=== PATIENT | female | born 1960 | race Caucasian/White ===

== ENCOUNTER 2019-03-11 15:59 | Emergency (ER) | payer OTHER ==
[~2019-03-11] VITALS: Ht 162.6 cm; Wt 107.7 kg
[2019-03-11 16:13] VITALS: BP 170/99
[2019-03-11 16:49] LABS: BASOPHILS # (AUTO) 0.1 X10'3 (0-0.2); BASOPHILS % (AUTO) 1.1 % (0-1); EOSINOPHILS # (AUTO) 0.4 X10'3 (0-0.9); EOSINOPHILS % (AUTO) 4.5 % (0-6); HEMATOCRIT 37.9 % (35.0-45.0); HEMOGLOBIN 13.1 g/dl (12.0-16.0); LYMPHOCYTES % (AUTO) 22.3 % (21-51); MEAN CORPUSCULAR HEMOGLOBIN 30.6 PG (27.0-31.0); MEAN CORPUSCULAR HGB CONC 34.5 g/dL (33.0-36.5); MEAN CORPUSCULAR VOLUME 88.6 FL (78-98); MEAN PLATELET VOLUME 7.9 FL (7.4-10.4); MONOCYTES # (AUTO) 0.6 X10'3 (0-0.9); MONOCYTES % (AUTO) 6.4 % (2-12); NEUTROPHILS # (AUTO) 5.9 X10'3 (1.8-7.7); NEUTROPHILS % (AUTO) 65.7 % (42-75); PLATELET COUNT 320 X10'3 (140-440); RED BLOOD COUNT 4.28 X10'6 (4.20-5.60); RED CELL DISTRIBUTION WIDTH 13.4 % (11.5-14.5)
[2019-03-11 17:02] LABS: ALANINE AMINOTRANSFERASE 45 U/L (12-78); ALBUMIN 4.1 G/DL (3.4-5.0); ALBUMIN/GLOBULIN RATIO 1.1 (1.1-1.5); ALKALINE PHOSPHATASE 104 IU/L (46-116); ANION GAP 10 (8-16); ASPARTATE AMINO TRANSFERASE 35 U/L (10-37); BILIRUBIN,TOTAL 0.4 MG/DL (0.1-1.0); BLOOD UREA NITROGEN 11 MG/DL (7-18); BUN/CREATININE RATIO 13.1 (6.6-38.0); CALCIUM 9.5 MG/DL (8.5-10.1); CHLORIDE 107 MMOL/L (99-107); CREATININE 0.84 MG/DL (0.40-0.90); GLUCOSE 100 MG/DL (70-104); POTASSIUM 3.7 MMOL/L (3.5-5.1); SODIUM 142 MMOL/L (135-145); TOTAL CARBON DIOXIDE 25.5 MMOL/L (24-32); TOTAL PROTEIN 7.8 G/DL (6.4-8.2); eGFR 69 ML/MIN
[2019-03-11] MEDS ORDERED: predniSONE 20 mg tablet PO ONE (17:10)
[2019-03-11] MEDS ORDERED: azithromycin 250mg tablet PO ONE (17:10)
[2019-03-11] MEDS ORDERED: ipratropium/albuterol 3ml nebule NEB ONE (17:10)
[2019-03-11] MEDS ORDERED: albuterol 2.5 MG/3 ML nebule NEB ONE (17:10)
[2019-03-11] MEDS ORDERED: AZIT250T PO (17:34)
[2019-03-11] MEDS ORDERED: PRED20TA PO (17:34)
== END 2019-03-11 18:16 | disposition home or self-care (01) ==
LOC: ER 15:59
DX: J44.1 Chronic obstructive pulmonary disease with (acute) exacerbation (principal); Z60.2 Problems related to living alone; Z79.899 Other long term (current) drug therapy
CPT/HCPCS: 36415; 71045; 80053; 83880; 85025; 93005; 94640; 99284; J7512; 94760

== ENCOUNTER 2023-06-27 06:09 | Inpatient (IN) | payer OTHER ==
[2023-06-24 15:55] LABS: BILIRUBIN,URINE NEGATIVE (Neg); CLARITY,URINE CLOUDY (Clear); COLOR,URINE YELLOW (Yellow); GLUCOSE, URINE NEGATIVE (Neg); KETONES,URINE NEGATIVE (Neg); LEUKOCYTE ESTERASE ,URINE NEGATIVE (Neg); NITRITES, URINE POSITIVE (Neg); OCCULT BLOOD,URINE NEGATIVE (Neg); PROTEIN,URINE NEGATIVE (Neg); UROBILINOGEN,URINE 0.2 E.U/dL (0.2-1.0)
[2023-06-24 15:55] LABS: BASOPHILS # (AUTO) 0.1 X10'3 (0-0.2); BASOPHILS % (AUTO) 0.9 % (0-1); EOSINOPHILS # (AUTO) 0.1 X10'3 (0-0.9); EOSINOPHILS % (AUTO) 2.4 % (0-6); LYMPHOCYTES # (AUTO) 1.5 X10'3 (1.1-4.8); LYMPHOCYTES % (AUTO) 24.9 % (21-51); MEAN CORPUSCULAR HEMOGLOBIN 31.3 PG (27.0-31.0); MEAN CORPUSCULAR HGB CONC 34.3 g/dL (33.0-36.5); MEAN CORPUSCULAR VOLUME 91.2 FL (78-98); MEAN PLATELET VOLUME 6.9 FL (7.4-10.4); MONOCYTES # (AUTO) 0.6 X10'3 (0-0.9); NEUTROPHILS # (AUTO) 3.9 X10'3 (1.8-7.7); NEUTROPHILS % (AUTO) 62.8 % (42-75); PRE OP HEMATOCRIT 35.9 % (35.0-45.0); PRE OP HEMOGLOBIN 12.3 g/dL (12.0-16.0); PRE OP PLATELET COUNT 391 X10'3 (140-440); PRE OP WHITE BLOOD COUNT 6.2 10'3 (4.8-10.8); RED BLOOD COUNT 3.94 X10'6 (4.20-5.60); RED CELL DISTRIBUTION WIDTH 13.3 % (11.5-14.5)
[2023-06-24 16:04] LABS: UA COLLECTION TYPE CLN CATCH MIDSTREAM
[2023-06-24 16:05] LABS: SQUAMOUS EPITHELIAL CELL,UR MODERATE /LPF (FEW)
[2023-06-24 16:06] LABS: BACTERIA,URINE 4+ /HPF (Neg); RBC,URINE 0-2 /HPF (0-2)
[2023-06-24 16:10] LABS: ALBUMIN 3.7 G/DL (3.4-5.0); ALBUMIN/GLOBULIN RATIO 0.9 (1.1-1.5); ALKALINE PHOSPHATASE 107 IU/L (46-116); BLOOD UREA NITROGEN 11 MG/DL (7-18); BUN/CREATININE RATIO 14.3 (10.0-20.0); CALCIUM 9.2 MG/DL (8.5-10.1); CHLORIDE 106 MMOL/L (99-107); CREATININE 0.77 MG/DL (0.40-0.90); PRE OP ALT 23 U/L (30-65); PRE OP ANION GAP 9 (8-16); PRE OP AST 24 U/L (10-37); PRE OP BILIRUB, TOTAL 0.4 MG/DL (0.0-1.0); PRE OP GLUCOSE 97 MG/DL (70-104); PRE OP POTASSIUM 3.9 MMOL/L (3.4-5.1); PRE OP SODIUM 143 MMOL/L (135-145); TOTAL CARBON DIOXIDE 27.8 MMOL/L (24-32); eGFR 75 ML/MIN
[2023-06-27] VITALS (31 sets, daily range): BP systolic 105–142; BP diastolic 49–94; PULSE 68–114; RESP 14–20; TEMP 97.5–98.8; O2SAT 94–99
[~2023-06-27] VITALS: Ht 162.6 cm; Wt 108.3 kg
[2023-06-27] MEDS: cefazolin 2gm/D5W 100mL 100 ML IV ONE (05:30)
[~2023-06-27 06:09] MED LIST: AZAT50TA18 PO; BUDE10.26 PO; [UNRECOGNIZED DRUG - CODE] PO
[2023-06-27] MEDS ORDERED: bacitracin 15gm ointment TP ONE (06:43)
[2023-06-27] MEDS ORDERED: BUPIVAcaine/PF 2.5mg/ml (0.25%) 10ml vial ONE (06:43)
[2023-06-27] MEDS: famotidine 20mg tablet PO ONE (07:10)
[2023-06-27] MEDS: ringers solution, lacted 1,000 ML IV SCH ×2 (07:10→08:40)
[2023-06-27] MEDS: albuterol 2.5 MG/3 ML nebule NEB ONE (07:22)
[2023-06-27] MEDS ORDERED: morphine 4 MG/ML inj SYRINge IV PRN (08:40)
[2023-06-27] MEDS ORDERED: labetalol 20mg/4ml (5mg/ml) syringe IV PRN (08:40)
[2023-06-27] MEDS ORDERED: proCHLORperazine 10 MG/2 ml inj IV PRN (08:40)
[2023-06-27] MEDS ORDERED: meperidine/PF 25mg/ml syringe IV PRN ×3 (08:40)
[2023-06-27] MEDS ORDERED: morphine 2 MG/ML inj. syringe IV PRN (08:40)
[2023-06-27] MEDS ORDERED: ondansetron/PF 4mg/2ml inj IV PRN (08:40)
[2023-06-27] MEDS ORDERED: enalaprilat dihydrate 2.5mg/2ml vial IV PRN (08:40)
[2023-06-27] MEDS ORDERED: MIDAZolam 1 MG/ML 5ML VIAL ONE (09:17)
[2023-06-27] MEDS ORDERED: fentaNYL/PF 50MCG/1 ML 2ML syringe ONE (09:17)
[2023-06-27] MEDS ORDERED: ROPIVAcaine 0.5% (5mg/ml) 30ml vial ONE (09:56)
[2023-06-27] MEDS ORDERED: BUPIVAcaine/PF 7.5mg/ml (0.75%) 10ml vial ONE (09:56)
[2023-06-27] MEDS ORDERED: dexamethasone sod phosphate 4mg/ml inj. ONE (09:57)
[2023-06-27] MEDS: bacitracin 15gm ointment TP ONE (10:36)
[2023-06-27] MEDS ORDERED: acetaminophen 1,000mg/100ml IV 100 ML IV ONE (11:21)
[2023-06-27] MEDS ORDERED: propofol inj 20 ML IV ONE (11:23)
[2023-06-27] MEDS: sodium chloride 0.45% 1,000 ML IV SCH (14:17)
[2023-06-27] MEDS: cefazolin 2gm/D5W 100mL 100 ML IV SCH (17:17)
[2023-06-27] MEDS: budesonide 0.5mg/2ml UD nebule IH SCH (20:00)
[2023-06-27] MEDS: PYRIDOSTIGMINE BROMIDE PO SCH (20:00)
[2023-06-27] MEDS: albuterol 2.5 MG/3 ML nebule NEB SCH (21:26)
[2023-06-27] MEDS ORDERED: CefTRIAXone/D5W-Rocephin 1gm 50 ML IV SCH (23:20)
[2023-06-28] VITALS (13 sets, daily range): BP systolic 123–141; BP diastolic 56–71; PULSE 73–93; RESP 15–20; TEMP 97.7–98.7; O2SAT 93–99
[2023-06-28] MEDS: CefTRIAXone/D5W-Rocephin 1gm 50 ML IV SCH (00:07)
[2023-06-28] MEDS: PYRIDOSTIGMINE BROMIDE 180 MG PO SCH (10:31)
[2023-06-28] MEDS: acetaminophen w/codeine (30MG) #3 tablet PO PRN (20:28)
[2023-06-28] MEDS: HYDROcodone/acetaminophen 10/325mg tab PO PRN (22:57)
[2023-06-29] VITALS (14 sets, daily range): BP systolic 110–115; BP diastolic 56–70; PULSE 61–86; RESP 14–18; TEMP 97.2–98; O2SAT 95–98
[2023-06-29] MEDS: acetaminophen w/codeine (30MG) #3 tablet PO PRN (00:25)
[2023-06-29] MEDS: HYDROmorphone inj. 0.5 MG/0.5 ML DISP.SYRIN IV ONE (02:06)
[2023-06-29] MEDS: HYDROcodone/acetaminophen 10/325mg tab PO PRN (03:16)
[2023-06-29] MEDS: ondansetron/PF 4mg/2ml inj IV PRN (15:31)
[2023-06-29] MEDS: predniSONE 20 mg tablet PO ONE (17:20)
[2023-06-29] MEDS ORDERED: HYDROmorphone inj. 0.5 MG/0.5 ML DISP.SYRIN IV PRN (20:50)
[2023-06-29] MEDS: ketorolac trometh. 30mg/ml inj. IV ONE (21:09)
[2023-06-30] VITALS (11 sets, daily range): BP systolic 113–145; BP diastolic 61–72; PULSE 59–85; RESP 16–20; TEMP 96.2–98.2; O2SAT 95–98
[2023-06-30] MEDS: acetaminophen 325mg tablet PO PRN (05:01)
[2023-06-30] MEDS: prednisone 10mg tablet PO SCH (08:56)
[2023-06-30 09:42] LABS: BASOPHILS % (AUTO) 0.2 % (0-1); EOSINOPHILS % (AUTO) 0.1 % (0-6); HEMATOCRIT 37.9 % (35.0-45.0); HEMOGLOBIN 12.6 g/dl (12.0-16.0); LYMPHOCYTES # (AUTO) 1.2 X10'3 (1.1-4.8); LYMPHOCYTES % (AUTO) 9.8 % (21-51); MEAN CORPUSCULAR HEMOGLOBIN 30.6 PG (27.0-31.0); MEAN CORPUSCULAR HGB CONC 33.2 g/dL (33.0-36.5); MEAN CORPUSCULAR VOLUME 92.4 FL (78-98); MEAN PLATELET VOLUME 7.2 FL (7.4-10.4); MONOCYTES # (AUTO) 0.5 X10'3 (0-0.9); MONOCYTES % (AUTO) 3.7 % (2-12); NEUTROPHILS # (AUTO) 10.8 X10'3 (1.8-7.7); NEUTROPHILS % (AUTO) 86.2 % (42-75); PLATELET COUNT 433 X10'3 (140-440); RED CELL DISTRIBUTION WIDTH 13.4 % (11.5-14.5); WHITE BLOOD COUNT 12.5 X10'3 (4.5-11.0)
[2023-06-30 10:33] LABS: ALANINE AMINOTRANSFERASE 18 U/L (12-78); ALBUMIN 3.3 G/DL (3.4-5.0); ALBUMIN/GLOBULIN RATIO 0.7 (1.1-1.5); ALKALINE PHOSPHATASE 101 IU/L (46-116); ANION GAP 12 (8-16); ASPARTATE AMINO TRANSFERASE 18 U/L (10-37); BILIRUBIN,TOTAL 0.5 MG/DL (0.1-1.0); BLOOD UREA NITROGEN 13 MG/DL (7-18); BUN/CREATININE RATIO 19.1 (10.0-20.0); CALCIUM 9.9 MG/DL (8.5-10.1); CHLORIDE 102 MMOL/L (99-107); CREATININE 0.68 MG/DL (0.40-0.90); GLUCOSE 129 MG/DL (70-104); POTASSIUM 4.3 MMOL/L (3.5-5.1); SODIUM 138 MMOL/L (135-145); TOTAL CARBON DIOXIDE 23.9 MMOL/L (24-32); TOTAL PROTEIN 8.1 G/DL (6.4-8.2); eCRCL 72 ML/MIN; eGFR 87 ML/MIN
[2023-07-01] VITALS (14 sets, daily range): BP systolic 130–152; BP diastolic 64–76; PULSE 66–90; RESP 14–20; TEMP 97.3–98.2; O2SAT 93–98
[2023-07-02] VITALS (9 sets, daily range): BP systolic 97–125; BP diastolic 63–68; PULSE 67–88; RESP 16–19; TEMP 97.3–97.7; O2SAT 92–98
[2023-07-02] MEDS ORDERED: PRED10TA PO (17:41)
[2023-07-02] MEDS ORDERED: ASPI-1 PO (17:58)
[2023-07-02] MEDS ORDERED: ASPI-1265 PO (18:07)
[2023-07-02] MEDS ORDERED: ACET-1 PO (18:09)
== END 2023-07-02 18:55 | disposition home or self-care (01) | DRG 493 ==
LOC: PAS 06:09 → ORTHO 4S 13:55 → OBSVTOIN 06-29 13:56 → ORTHO 4S 07-01 21:13
PROVIDERS: ADMIT Podiatrist Foot & Ankle Surgery; ATTEND Podiatrist Foot & Ankle Surgery
PROC: 0SBF4ZZ Excision of Right Ankle Joint, Percutaneous Endoscopic Approach (ICD-10-PCS; 2023-06-27)
PROC: 0MQQ4ZZ Repair Right Ankle Bursa and Ligament, Percutaneous Endoscopic Approach (ICD-10-PCS; 2023-06-27)
PROC: 3E0T3BZ Introduction of Anesthetic Agent into Peripheral Nerves and Plexi, Percutaneous Approach (ICD-10-PCS; 2023-06-27)
PROC: 3E0T33Z Introduction of Anti-inflammatory into Peripheral Nerves and Plexi, Percutaneous Approach (ICD-10-PCS; 2023-06-27)
PROC: 0LQS0ZZ Repair Right Ankle Tendon, Open Approach (ICD-10-PCS; principal; 2023-06-27 09:14)
DX: M25.371 Other instability, right ankle (principal); N39.0 Urinary tract infection, site not specified; S96.811A Strain of other specified muscles and tendons at ankle and foot level, right foot, initial encounter; M25.471 Effusion, right ankle; X58.XXXA Exposure to other specified factors, initial encounter; J44.9 Chronic obstructive pulmonary disease, unspecified; G70.00 Myasthenia gravis without (acute) exacerbation; F10.21 Alcohol dependence, in remission; Y93.89 Activity, other specified; Y92.89 Other specified places as the place of occurrence of the external cause; Y99.8 Other external cause status; Z98.891 History of uterine scar from previous surgery; Z87.891 Personal history of nicotine dependence
CPT/HCPCS: Z7506; Z7508; 36415; 80053; 81001; 82948; 85025; 87077; 87088; 87186; 93005; 94640; 94760; 97116; 97161; 97530; A4615; A4618; A6222; A6449; A7000; C1713; G0378; J0131; J0690; J0696; J1100; J1170; J1885; J2250; J2405; J2704; J2795; J3010; J3490; J7120; J7500; J7512